=== PATIENT | male | born 1950 | race Caucasian/White ===

== ENCOUNTER 2017-04-23 11:18 | Day surgery (SDC) | payer OTHER, MEDICARE ==
[~2017-04-23 11:18] MED LIST: ceFAZolin 2 GM/SWFI 2 GM/20 ML SYR IVP ONE
[2017-04-23] MEDS ORDERED: LIDOCAINE 1% 2 ML INJ ID PRN (11:47)
[2017-04-23] MEDS ORDERED: LR 1,000 ML IV ONE (11:47)
--- NOTE | 2017-04-23 12:03 | PDHPUP ---
History & Physical Update H&P update statement: This history and physical update is based on an assessment of the patient which was completed after admission or registration (within 24 hours), but prior to the surgery/procedure.
[2017-04-23 12:05] VITALS: PULSE 60
[2017-04-23] MEDS ORDERED: clonIDINE 1 MG/10 ML VIAL EP ONE (12:49)
[2017-04-23] MEDS ORDERED: ROPIVACAINE HCL 150 MG/30 ML INJ ONE (12:49)
[2017-04-23] MEDS ORDERED: BUPIVACAINE 0.5% 30 ML SDV ONE (12:51)
--- NOTE | 2017-04-23 13:10 | PDANEPAE ---
ANE History of Present Illness Patient presents for R foot surgery ANE Past Medical History - Cardiovascular History Hx Hypertension: No Hx Arrhythmias: No Hx Chest Pain: No Hx Coronary Artery / Peripheral Vascular Disease: No Hx CHF / Valvular Disease: No Hx Palpitations: No - Pulmonary History Hx COPD: No Hx Asthma/Reactive Airway Disease: Yes Hx Recent Upper Respiratory Infection: No Hx Oxygen in Use at Home: No Hx Sleep Apnea: Yes Sleep Apnea Screening Result - Last Documented: Negative Pulmonary History Comment: ASTHMA USES ADVAIR INHALER - Neurologic History Hx Cerebrovascular Accident: No Hx Seizures: No Hx Dementia: No - Endocrine History Hx Diabetes: No - Renal History Hx Renal Disorders: No - Liver History Hx Hepatic Disorders: No - Neurological & Psychiatric Hx Hx Neurological and Psychiatric Disorders: No - Cancer History Hx Cancer: No - Congenital Disorder History Hx Congenital Disorders: No - GI History Hx Gastrointestinal Disorders: No - Other Health History Other Health History: NONE - Chronic Pain History Chronic Pain: Yes (BACK PAIN) - Surgical History Prior Surgeries: BACK SURG LUMBAR. HERNIA REPAIR A BABY. EYE SURGERY. TONSILLECTOMY ANE Review of Systems Review of Systems: - Exercise capacity METS (RN): 4 METS ANE Patient History - Allergies Allergies/Adverse Reactions: No Known Allergies Allergy (Unverified 05/18/14 13:55) - Home Medications Home medications: home medication list seen and reviewed Home Medications: Fluticasone/Salmeter 100/50Mcg [Advair 100/50 (RX)] 1 puffs IH DAILY 05/18/14 [ Last Taken 04/22/17] Montelukast Sodium [Singulair] 10 mg PO DAILY@1800 05/18/14 [Last Taken 04/22/17 ] Olopatadine HCl [Patanase] 1 spray NS DAILY PRN 05/18/14 [Last Taken 04/22/17] Amantadine 04/19/17 [Last Taken 04/22/17] Carbidopa-Levo 10-100 mg Odt 04/19/17 [Last Taken 04/23/17] Hydrocodon-Acetaminophen 5-325 04/19/17 [Last Taken 04/16/17] Meloxicam 04/19/17 [Last Taken 04/21/17] Ondansetron 04/19/17 [Last Taken 04/22/17] Restoril 04/19/17 [Last Taken 04/22/17] Temazepam 04/19/17 [Last Taken 04/22/17] Venlafaxine HCl 04/19/17 [Last Taken 04/22/17] - NPO status NPO Status: no food or drink >8 hours NPO Since - Liquids (Date): 04/23/17 NPO Since - Liquids (Time): 00:00 NPO Since - Solids (Date): 04/22/17 NPO Since - Solids (Time): 23:00 - Smoking Hx Smoking Status: Never smoked - Family Anes Hx Family Hx Anesthesia Complications: NONE ANE Labs/Vital Signs - Vital Signs Blood Pressure: 140/81 Heart Rate: 60 Respiratory Rate: 16 O2 Sat (%): 92 Height: 198.12 cm Weight: 117.934 kg ANE Physical Exam - Airway Neck exam: FROM Mallampati Score: Class 2 Mouth exam: normal dental/mouth exam - Pulmonary Pulmonary: no respiratory distress - Cardiovascular Cardiovascular: regular rate and rhythym - ASA Status ASA Status: II ANE Anesthesia Plan Anesthesia Plan: GA w LMA [facility] Anesthesia: single shot NB (rba discussed)
--- NOTE | 2017-04-23 13:12 | PDANEPAE ---
ANE Past Medical History - Cardiovascular History Hx Hypertension: No Hx Arrhythmias: No Hx Chest Pain: No Hx Coronary Artery / Peripheral Vascular Disease: No Hx CHF / Valvular Disease: No Hx Palpitations: No - Pulmonary History Hx COPD: No Hx Asthma/Reactive Airway Disease: Yes Hx Recent Upper Respiratory Infection: No Hx Oxygen in Use at Home: No Hx Sleep Apnea: Yes Sleep Apnea Screening Result - Last Documented: Negative Pulmonary History Comment: ASTHMA USES ADVAIR INHALER - Neurologic History Hx Cerebrovascular Accident: No Hx Seizures: No Hx Dementia: No - Endocrine History Hx Diabetes: No - Renal History Hx Renal Disorders: No - Liver History Hx Hepatic Disorders: No - Neurological & Psychiatric Hx Hx Neurological and Psychiatric Disorders: No - Cancer History Hx Cancer: No - Congenital Disorder History Hx Congenital Disorders: No - GI History Hx Gastrointestinal Disorders: No - Other Health History Other Health History: NONE - Chronic Pain History Chronic Pain: Yes (BACK PAIN) - Surgical History Prior Surgeries: BACK SURG LUMBAR. HERNIA REPAIR A BABY. EYE SURGERY. TONSILLECTOMY ANE Review of Systems Review of Systems: - Exercise capacity METS (RN): 4 METS ANE Patient History - Allergies Allergies/Adverse Reactions: No Known Allergies Allergy (Unverified 05/18/14 13:55) - Home Medications Home Medications: Fluticasone/Salmeter 100/50Mcg [Advair 100/50 (RX)] 1 puffs IH DAILY 05/18/14 [ Last Taken 04/22/17] Montelukast Sodium [Singulair] 10 mg PO DAILY@1800 05/18/14 [Last Taken 04/22/17 ] Olopatadine HCl [Patanase] 1 spray NS DAILY PRN 05/18/14 [Last Taken 04/22/17] Amantadine 04/19/17 [Last Taken 04/22/17] Carbidopa-Levo 10-100 mg Odt 04/19/17 [Last Taken 04/23/17] Hydrocodon-Acetaminophen 5-325 04/19/17 [Last Taken 04/16/17] Meloxicam 04/19/17 [Last Taken 04/21/17] Ondansetron 04/19/17 [Last Taken 04/22/17] Restoril 04/19/17 [Last Taken 04/22/17] Temazepam 04/19/17 [Last Taken 04/22/17] Venlafaxine HCl 04/19/17 [Last Taken 04/22/17] - NPO status NPO Since - Liquids (Date): 04/23/17 NPO Since - Liquids (Time): 00:00 NPO Since - Solids (Date): 04/22/17 NPO Since - Solids (Time): 23:00 - Smoking Hx Smoking Status: Never smoked - Family Anes Hx Family Hx Anesthesia Complications: NONE ANE Labs/Vital Signs - Vital Signs Blood Pressure: 140/81 Heart Rate: 60 Respiratory Rate: 16 O2 Sat (%): 92 Height: 198.12 cm Weight: 117.934 kg ANE Anesthesia Plan Urgent/Emergent Case: Geraldine murray completed preop but documented later for safe timely pt care
--- NOTE | 2017-04-23 13:18 | PDANEPAE ---
ANE Past Medical History - Cardiovascular History Hx Hypertension: No Hx Arrhythmias: No Hx Chest Pain: No Hx Coronary Artery / Peripheral Vascular Disease: No Hx CHF / Valvular Disease: No Hx Palpitations: No - Pulmonary History Hx COPD: No Hx Asthma/Reactive Airway Disease: Yes Hx Recent Upper Respiratory Infection: No Hx Oxygen in Use at Home: No Hx Sleep Apnea: Yes Sleep Apnea Screening Result - Last Documented: Negative Pulmonary History Comment: ASTHMA USES ADVAIR INHALER - Neurologic History Hx Cerebrovascular Accident: No Hx Seizures: No Hx Dementia: No - Endocrine History Hx Diabetes: No - Renal History Hx Renal Disorders: No - Liver History Hx Hepatic Disorders: No - Neurological & Psychiatric Hx Hx Neurological and Psychiatric Disorders: No - Cancer History Hx Cancer: No - Congenital Disorder History Hx Congenital Disorders: No - GI History Hx Gastrointestinal Disorders: No - Other Health History Other Health History: NONE - Chronic Pain History Chronic Pain: Yes (BACK PAIN) - Surgical History Prior Surgeries: BACK SURG LUMBAR. HERNIA REPAIR A BABY. EYE SURGERY. TONSILLECTOMY ANE Review of Systems Review of Systems: - Exercise capacity METS (RN): 4 METS ANE Patient History - Allergies Allergies/Adverse Reactions: No Known Allergies Allergy (Unverified 05/18/14 13:55) - Home Medications Home Medications: Fluticasone/Salmeter 100/50Mcg [Advair 100/50 (RX)] 1 puffs IH DAILY 05/18/14 [ Last Taken 04/22/17] Montelukast Sodium [Singulair] 10 mg PO DAILY@1800 05/18/14 [Last Taken 04/22/17 ] Olopatadine HCl [Patanase] 1 spray NS DAILY PRN 05/18/14 [Last Taken 04/22/17] Amantadine 04/19/17 [Last Taken 04/22/17] Carbidopa-Levo 10-100 mg Odt 04/19/17 [Last Taken 04/23/17] Hydrocodon-Acetaminophen 5-325 04/19/17 [Last Taken 04/16/17] Meloxicam 04/19/17 [Last Taken 04/21/17] Ondansetron 04/19/17 [Last Taken 04/22/17] Restoril 04/19/17 [Last Taken 04/22/17] Temazepam 04/19/17 [Last Taken 04/22/17] Venlafaxine HCl 04/19/17 [Last Taken 04/22/17] - NPO status NPO Since - Liquids (Date): 04/23/17 NPO Since - Liquids (Time): 00:00 NPO Since - Solids (Date): 04/22/17 NPO Since - Solids (Time): 23:00 - Smoking Hx Smoking Status: Never smoked - Family Anes Hx Family Hx Anesthesia Complications: NONE ANE Labs/Vital Signs - Vital Signs Blood Pressure: 140/81 Heart Rate: 60 Respiratory Rate: 16 O2 Sat (%): 92 Height: 198.12 cm Weight: 117.934 kg ANE Physical Exam - Airway Neck exam: FROM Mallampati Score: Class 3 Mouth exam: normal dental/mouth exam - Pulmonary Pulmonary: no respiratory distress - Cardiovascular Cardiovascular: regular rate and rhythym - ASA Status ASA Status: III ANE Anesthesia Plan Anesthesia Plan: GA w LMA
[2017-04-23] MEDS ORDERED: PROPOFOL 200 MG/20 ML VIAL ONE (13:58)
[2017-04-23] MEDS ORDERED: LIDOCAINE 2% 100 MG/5 ML SYR ONE (13:58)
--- NOTE | 2017-04-23 15:01 | POSTOPPROG ---
Post Op Note Date of Operation: 04/23/17 Surgeon: Adonay Mckeon [employer] Printing Machine Operator: El Anesthesiologist: Mikayla Anesthesia: GET(General Endotracheal) Pre-op Diagnosis: R 5th MT base fx Post-op Diagnosis: same Indication: above Procedure: orif R 5th MT base fx Inf/Abcess present in the surg proc area at time of surgery?: No EBL: Minimal
[2017-04-23] MEDS ORDERED: NALOXONE HCL 0.4 MG/ML INJ IVP PRN (15:05)
[2017-04-23] MEDS ORDERED: ALBUTEROL 3 ML DEYVIAL IH PRN (15:05)
[2017-04-23] MEDS ORDERED: fentaNYL 100 MCG/2 ML INJ IVP PRN (15:05)
[2017-04-23] MEDS ORDERED: ONDANSETRON 4 MG/2 ML VIAL IVP PRN (15:05)
--- NOTE | 2017-04-23 15:05 | POSTANESTH ---
Post Anesthetic Evaluation Cardiovascular Status: Similar to Pre-Op Cond Respiratory Status: Similar to Pre-op Cond. Level of Consciousness/Mental Status: Mildly Sleepy, Arousable Pain Control: Adequate, Prn Tx Ordered Nausea/Vomiting Control: Adequate, Prn Tx Ordered Complications Possibly Related to Anesthesia: None Noted
[2017-04-23 16:17] VITALS: RESP 16
[2017-04-23 17:01] VITALS: TEMP 97.7
[2017-04-23 17:05] VITALS: BP 122/65; O2SAT 95
--- NOTE | 2017-04-23 20:34 | GOP ---
[f rep st] OPERATIVE REPORT DATE OF OPERATION: 04/23/2017 SURGEON: Adonay Mckeon MD EXAMINATION GRADER: Abner Gallegos SA ANESTHESIA: General. PREOPERATIVE DIAGNOSIS: Right 5th metatarsal base fracture. POSTOPERATIVE DIAGNOSIS: Right 5th metatarsal base fracture. PROCEDURE PERFORMED: Open reduction and internal fixation, right 5th metatarsal base fracture. FINDINGS: SPECIMENS: None. ESTIMATED BLOOD LOSS: 5 mL. INDICATIONS: This is a 67-year-old male, sustained this fracture, went on to displace widely in zone 2 and close to zone 3. I counseled him on the risks and benefits of surgical intervention. He would like to proceed. Informed consent obtained. All questions were answered. He was marked preoperatively. DESCRIPTION OF PROCEDURE: He was taken to the operative suite. Sterilely prepped and draped in the normal fashion. Time-out was performed verifying site , side, location and agreed upon by all members of the team. Esmarch tourniquet was utilized. Time-out was performed. Incision was made just proximal to the 5th metatarsal base and retracted base plantarly. Placed a guide pin across the fracture site. I tapped a 4.5 and then a 5.5 cannulated tap. I was able to reduce the fracture some just with manual manipulation. I measured and selected a solid screw. I placed this across the fracture site and tightened this. Obtained good purchase and good compression across the fracture site. Final x-rays were taken. He was closed with 2-0 Vicryl, 3-0 Monocryl, and Dermabond. He was taken to PACU in stable condition. IMPLANTS: Arthrex 5.5 x 45 mm solid screw. COMPLICATIONS: None. DRAINS: None. CONDITION: Stable. /[id number]/MODL MTDD
== END 2017-04-23 16:43 | disposition home or self-care (01) ==
LOC: FSGY 11:18
PROVIDERS: ATTEND Orthopaedic Surgery
PROC: 0QSN04Z Reposition Right Metatarsal with Internal Fixation Device, Open Approach (ICD-10-PCS; principal; 2017-04-23 14:00)
DX: S92.351A Displaced fracture of fifth metatarsal bone, right foot, initial encounter for closed fracture (principal); X58.XXXA Exposure to other specified factors, initial encounter; J45.909 Unspecified asthma, uncomplicated; Z82.49 Family history of ischemic heart disease and other diseases of the circulatory system
CPT/HCPCS: 28485; C1769; C1713; J0735; J2001; J2704; J2795